=== PATIENT | female | born 1960 | race Caucasian/White ===

== ENCOUNTER → 2020-01-25 | Outpatient (CLI) | payer OTHER | LOC: CAT 07:57 | PROVIDERS: ATTEND Family Medicine | DX: Z13.6 Encounter for screening for cardiovascular disorders (principal); I25.10 Atherosclerotic heart disease of native coronary artery without angina pectoris; E78.00 Pure hypercholesterolemia, unspecified ==

== ENCOUNTER 2020-03-06 21:16 | Inpatient (IN) | payer OTHER ==
[~2020-03-06] VITALS: Ht 154.9 cm; Wt 65.8 kg
--- NOTE | ~2020-03-06 | O ---
[facility] [place] [place] [address] OPERATIVE REPORT Name: MAYA LEIVA Room #: 350-P ADM IN M.R.#: [id number] Admission: 03/07/20 Attend Phys: Gaudencio Kirby MD Discharge: Date of : 64 Report #: [id number] THIS REPORT FOR: cc: Catarino Velázquez Alan Z. DO Patterson,Michael Samuel MD ~ CC: Catarino Kirby DATE OF SERVICE: 03/08/2020 PREOPERATIVE DIAGNOSIS: Acute appendicitis. POSTOPERATIVE DIAGNOSIS: Acute perforated appendicitis. OPERATION: Laparoscopic appendectomy. SURGEON: Michael Joyner MD ANESTHESIA: General. ESTIMATED BLOOD LOSS: Minimal. SPECIMEN: Appendix. DESCRIPTION OF PROCEDURE: After informed consent was obtained, the patient was brought to the operating room and placed supine. SCDs were placed and working, preoperative antibiotics were administered, general anesthesia was induced. The abdomen was prepped and draped in the usual sterile fashion. A 10 mm incision was made below the umbilicus. Fascia was incised and a trocar was placed. Pneumoperitoneum was established. Right upper quadrant and left lower quadrant 5 mm trocars were placed. The appendix was visualized in the right lower quadrant. It was perforated. It was grasped and retracted anteriorly. A window was made in the mesoappendix. The mesoappendix was ligated with a BRAULIO parsons load stapler. The base of the appendix was then stapled off with a BRAULIO blue load stapler. It was placed into an Endopouch and removed. The fascia was then closed with a [id number] 0 Vicryl. Skin was closed with 4-0 Monocryl. Incisions were sealed with Dermabond. COMPLICATIONS: None. [facility] [address] [place] [address] OPERATIVE REPORT Name: MAYA LEIVA Room #: 350-P [facility]#: [id number] Admission: 03/07/20 Attend Phys: Gaudencio Kirby MD Discharge: Date of : 64 Report #: [id number] DISPOSITION: The patient was taken to recovery in satisfactory condition. By: [id number] Michael Joyner MD /nt
[2020-03-06 21:52] VITALS: BP 150/86
[2020-03-06 23:07] LABS: ABSOLUTE NEUTROPHILS 12.4 thou/uL (1.4-8.2); BASOPHILS 0.3 % (0.0-2.0); EOSINOPHILS 0.1 % (0.0-3.0); HEMATOCRIT 36.3 % (37.0-47.0); HEMOGLOBIN 11.9 gm/dL (12.0-15.0); LYMPHOCYTES 5.6 % (24.0-44.0); MCH 28.5 pg (26.0-34.0); MCHC 32.7 g/dL (28.0-37.0); MCV 87.2 fL (80.0-100.0); MONOCYTES 5.5 % (1.0-8.0); PLATELET COUNT 256 thou/uL (150-400); POLYS 88.5 % (36.0-66.0); RBC 4.17 mil/uL (4.20-5.00)
[2020-03-06 23:30] LABS: ALBUMIN 3.5 g/dL (3.4-5.0); DIRECT BILIRUBIN 0.1 mg/dL (<0.1-0.2); POTASSIUM 3.6 mmol/L (3.5-5.1); TOTAL BILIRUBIN 0.5 mg/dL (0.2-1.0); TOTAL PROTEIN 6.8 g/dL (6.4-8.2)
[2020-03-06 23:40] LABS: CALCIUM 9.4 mg/dL (8.5-10.1)
[2020-03-07 00:39] LABS: URINE BILIRUBIN NEGATIVE (Negative); URINE BLOOD 2+ (Negative); URINE CLARITY CLEAR; URINE COLOR YELLOW; URINE GLUCOSE-RANDOM* NEGATIVE (Negative); URINE KETONES 2+ (Negative); URINE LEUKOCYTES-REFLEX NEGATIVE (Negative); URINE PROTEIN (DIPSTICK) TRACE (Negative); URINE SPECIFIC GRAVITY 1.025 (1.005-1.035); URINE UROBILINOGEN 0.2 E.U./dl (0.2-1.0)
[2020-03-07 00:41] LABS: URINE NITRITE-REFLEX POSITIVE (Negative)
[2020-03-07 00:49] LABS: BACTERIA-REFLEX >30 Many /HPF (None Seen); CASTS None Seen /LPF (None Seen); CRYSTALS None Seen /LPF (None Seen); MUCUS 0-3 Light strn/LPF (None Seen); SQUAMOUS 0-3 Few /LPF (0-3); URINE RBC 3-10 Few /HPF (0-2); URINE WBC-REFLEX 6-15 Few /HPF (0-5)
[2020-03-07 03:26] VITALS: BP 122/78
[2020-03-07 03:30] VITALS: BP 133/80
[2020-03-07 04:08] VITALS: BP 116/76
--- NOTE | 2020-03-07 06:00 | NUR ---
Pt. arrived to the unit from the emergency room accompanied by staff. She is alert and oriented. Ambulated to the bathroom with stand by assistance and voided. Admission assessment and history is completed. She rates her pain at a 2 out of 10. No c/o nausea.
[2020-03-07 06:19] LABS: HEMATOCRIT 36.3 % (37.0-47.0); HEMOGLOBIN 11.9 gm/dL (12.0-15.0); MCH 28.9 pg (26.0-34.0); MCHC 32.8 g/dL (28.0-37.0); MCV 88.3 fL (80.0-100.0); RBC 4.11 mil/uL (4.20-5.00); RDW 13.1 % (10.5-14.5); WBC 13.3 thou/uL (4.0-11.0)
[2020-03-07 06:31] LABS: CALCIUM 8.8 mg/dL (8.5-10.1); POTASSIUM 3.4 mmol/L (3.5-5.1)
--- NOTE | 2020-03-07 11:50 | NUR ---
ASSUMED CARE AT SHIFT CHANGE. ASSESSMENT PER CHART. REPORT GIVEN TO ANTONELLA SANDOVAL AT THIS TIME MY ASSIGNMENT HAS CHANGED.
[2020-03-07 13:38] VITALS: BP 113/66
[2020-03-07 18:22] VITALS: BP 120/71
--- NOTE | 2020-03-07 20:42 | NUR ---
ASSUMED CARE OF THE PATIENT AT 1200, PATIENT ALERT AND ORIENTED X 4. PATIENT UP AD CAROL. PATIENT NPO, WAITING TO SEE DR TONG. CALL TO DR TONG, PATIENT COVID POSITIVE. RECIEVED ORDER TO START CLEAR LIQUID DIET, AND NPO AFTER MIDNIGHT FOR SURGERY TOMORROW AT 1600. PATIENT C/O HEADACHE AND PAIN WITH ABDOMEN, PATIENT RECEIVED FENTANYL 50 MCG IV AND MOTRIN 600 MG PO FOR HEADACHE. PATIENT HAS LEFT AC IV, WITH NS AT 125CC/HR. HOUSE SUP. NOTIFIED ABOUT COVID POSITIVE, NO ROOM AVAILABLE AT THIS TIME. TRANSFER FROM [facility] FROM ROOM 350, AFTER ROOM CLEANED PATIENT WILL TRANSFER TO [facility].
[2020-03-07 21:45] VITALS: BP 131/82
--- NOTE | 2020-03-07 23:00 | NUR ---
ASSYMED CARE OF PT AROUND 1915HRS. PT AOX4 AND LETS NEEDS BE KNOWN. PT IS UP AD CAROL. PT REPORTED SOME ABD PAIN AND NAUSEA. PRNS PROVIDED. PT IS NPO FOR PROCEDURE IN 03/08. PT IS COVID POSITIVE AND WAS TRANSFERRED TO ROOM 350 AT 2300HRS. REPORT GIVEN AND PT TRANSFERRED IN STABLE CONDITION.
--- NOTE | 2020-03-08 05:55 | NUR ---
Patient transfered from 4, med/surg status here for abdominal pain. Transfer due to patient being COVID +. Planned lap appy later today. IVfluids infusing. NPO after MN. Up adlib without difficulty. Low fall risks, gait steady. Afebrile. Patient informed of need to collect specimen for stool culture.
[2020-03-08 07:27] VITALS: BP 135/84
--- NOTE | 2020-03-08 13:23 | NUR ---
INITIAL ASSESSMENT: SW reviewed chart and spoke with nursing and attending physician. Pt was transferred to from 4 yesterday after having positive COVID test. Pt is in Enhanced Isolation. Pt is afebrile and not requiring O2. Pt is on IV abx. Pt to have lap appendectomy around 1600 this afternoon. SW spoke with pt via phone. Introduced role of SW. Pt is alert/orientated x 4. Pt reports she lives at home with her . Prior to admission, pt was independent with ADLs. Pt does not use any DME. No hx of services or post-acute placement. Pt's PCP is Dr. Catarino Velázquez. Plan is for pt to return home when medically stable. SW is following to assist as needed with discharge planning.
[2020-03-08 15:19] VITALS: BP 136/79
--- NOTE | 2020-03-08 16:31 | NUR ---
ASSUMED CARE OF PT AT 0700. PT AOX4 IN NO ACUTE DISTRESS. COMPLAINS OF HEADACHE - ALLEVIATED WITH IBUPROFEN. UP AD CAROL. PATIENT REPORTS ABD PAIN IMPROVING. IVF INFUSING PER ORDER. ANTICIPATE LAP APPENDECTOMY TODAY.
[2020-03-08 19:15] VITALS: BP 122/84
[2020-03-09 03:20] VITALS: BP 140/89
[2020-03-09 07:02] VITALS: BP 131/83
--- NOTE | 2020-03-09 08:05 | NUR ---
ASSUMED CARE AT 1900, ASSESSMENT COMPLETED. PT DENIED PAIN OR SOB AT START OF SHIFT. REPORTED NAUSEA WITH EPISODE OF EMESIS, APPROX 200 ML AFTER EATING DINNER; DECLINED NAUSEA MEDS. IVF OVERNIGHT AND IV FLAGYL GIVEN. THIS AM, PT REPORTED RIGHT SHOULDER PAIN, LIKELY R/T GAS MOVEMENT FROM LAP APPY; GAVE DOSE OF IBUPROFEN, WHICH PT REPORTED TOTALLY RELIEVED THE PAIN. THREE INCISION SITES C/D/I COVERED BY BANDAIDES. REPORTED SMALL AMOUNT OF EMESIS THIS AM WHEN SHE GOT UP TO TOILET BUT AGAIN DECLINED ANIT-EMETICS. NO OTHER CONCERNS, SHIFT REPORT GIVEN 0700.
[2020-03-09 09:22] LABS: HEMOGLOBIN 10.7 gm/dL (12.0-15.0); MCH 28.6 pg (26.0-34.0); MCHC 32.3 g/dL (28.0-37.0); MCV 88.5 fL (80.0-100.0); RBC 3.73 mil/uL (4.20-5.00); RDW 13.1 % (10.5-14.5); WBC 14.4 thou/uL (4.0-11.0)
[2020-03-09 09:49] LABS: ALBUMIN 2.6 g/dL (3.4-5.0); CALCIUM 8.9 mg/dL (8.5-10.1); PHOSPHORUS 2.6 mg/dL (2.5-4.9); POTASSIUM 3.8 mmol/L (3.5-5.1)
[2020-03-09] MEDS ORDERED: HYDROCODON-ACE1 EAC7 PO (10:47)
[2020-03-09] MEDS ORDERED: AUGMENTIN 875-1 EACH PO (10:48)
[2020-03-09 12:17] VITALS: BP 131/83
--- NOTE | 2020-03-09 12:40 | NUR ---
PT IS AOX4, VSS, NO C/O PAIN. IV REMOVED FROM LEFT AC. PT REFUSED NEW IV SO SHE DID NOT GET HER SCHEDULED MORNING ANTIBOTIC. PT IS UP AD CAROL IN ROOM. DENIES N/V, TOLERATING DIET WELL. PT RECEIVED FLU SHOT, WILL PHYS THERAPIST TO TAKE HOME AT 1430. WILL CONTINUE TO MONITOR.
--- NOTE | 2020-03-09 13:19 | NUR ---
DISCHARGE NOTE: SW reviewed chart and spoke with nursing. Pt remains in Enhanced Isolation due to COVID-19. Pt had lap appe yesterday afternoon and is medically stable for discharge home later today. SW spoke with pt via phone to discuss discharge plan. Pt states she is ready for discharge and denies having any needs. Pt's family to provide transportation home. No additional SW needs identified at this time, but is available to assist should needs arise.
--- NOTE | 2020-03-11 17:06 | PATH ---
[facility] [address] [place] [address] PATHOLOGY RPT PROCEDURE Name: MAYA LEIVA Eddi Room #: 350-P [facility] IN M.R.#: [id number] Admission: 03/07/20 Date of : 64 Discharge: 03/09/20 Report #: [id number] Path Case #: [id number] [facility] Accession Number: [id number] . 01 Material submitted: . appendix - APPENDIX . 01 Clinician provided ICD-10: A41.9 U07.1 . 01 Clinical history: . ACUTE APPENDICITIS . 02 Diagnosis: Appendix, appendectomy: - Marked acute appendicitis associated with marked acute serositis. - Proximal margin mucosa without significant acute inflammation. (IUV:youth minister; 03/11/2020) MBR 03/11/2020 1406 Local . 02 Electronically signed: . Remedios Navas MD, Pathologist NPI- [id number] . 01 Gross description: . Received in formalin labeled "Maya Leiva, appendix" is an appendix specimen measuring 5.1 cm in length and 0.8 cm in diameter. There is an attached portion of mesoappendix measuring 5.1 x 2.3 x 1.7 cm. The proximal margin is closed with a staple line. The serosa is mane-red with extensive mane-white purulent exudate. The specimen is sectioned to reveal a possible perforation in the mid appendix measuring 0.5 cm (inked blue). The average luminal diameter is 0.5 cm. No fecaliths are identified. Donor Relations Officer sections are submitted in cassette A1, with the proximal margin inked black. ([facility]; 03/10/2020) [facility] 03/10/20201952 Local . 02 Pathologist provided ICD-10: K35.80, K65.8 . 02 CPT . [id number] Specimen Comment: A courtesy copy of this report has been sent to [phone], [phone] Specimen Comment: [phone], Specimen Comment: Report sent to ,DR RILEY / DR RO Performed at: [address] [place] [address] PATHOLOGY RPT PROCEDURE Name: MAYA LEIVA Room #: 350-P DIS IN M.R.#: [id number] Admission: 03/07/20 Date of : 64 Discharge: 03/09/20 Report #: [id number] Path Case #: [id number] [facility] [place] [address] [place] [address] [address], [place], [place] [id number] MD Jabari Hdez MD Phone: [phone] Performed at: [address] [id number] MD Remedios Navas MD Phone: [phone]
== END 2020-03-09 14:49 | disposition home or self-care (01) | DRG 853 ==
LOC: ER 21:16 → 3W 03-07 02:29 → 4W 03-07 02:29 → EROBS 03-07 02:29 → 4W 03-07 03:51 → 3W 03-07 22:26
PROVIDERS: Emergency Medicine; Nurse Practitioner Family; Surgery; ADMIT Internal Medicine; ATTEND Internal Medicine
PROC: 0DTJ4ZZ Resection of Appendix, Percutaneous Endoscopic Approach (ICD-10-PCS; principal; 2020-03-08)
DX: A41.89 Other specified sepsis (principal); U07.1 COVID-19; N39.0 Urinary tract infection, site not specified; K35.80 Unspecified acute appendicitis; G43.909 Migraine, unspecified, not intractable, without status migrainosus; K52.89 Other specified noninfective gastroenteritis and colitis; F17.210 Nicotine dependence, cigarettes, uncomplicated; E87.6 Hypokalemia; Z88.5 Allergy status to narcotic agent; Z23 Encounter for immunization
CPT/HCPCS: 10779; 50101; 50411; 50555; 50739; 50740; 51489; 52265; 52266; 53307; 53312; 53314; 56525; 56526; 62110; 62900